=== PATIENT | male | born 1990 | race Caucasian/White ===

== ENCOUNTER 2018-02-25 01:50 | Observation (INO) ==
[2018-02-25] MEDS ORDERED: Naloxone 0.4 MG/ML INJ IVP PRN ×2 (04:04→18:20)
[2018-02-25] MEDS ORDERED: Acetaminophen 325 MG TABLET PO PRN ×2 (04:04→18:20)
[2018-02-25] MEDS ORDERED: Ondansetron 4 MG/2 ML VIAL IVP PRN ×2 (04:07→18:20)
[2018-02-25] MEDS ORDERED: *HR* FentaNYL (PF) 100 MCG/2 ML VIAL IVP PRN ×4 (04:07→18:20)
[2018-02-25] MEDS ORDERED: Ringers Solution, Lactated 1,000 ML IVC SCH ×2 (04:15→18:20)
--- NOTE | 2018-02-25 04:16 | Internal Med History&Physical ---
Date of Encounter: 02/25/18 Time of Encounter: 04:09 Internal Medicine - H&P: HPI Chief complaint: Abdominal pain Admitted From: Emergency Dept Plans for Post Hospital Care: Home History of present illness: Mr. Luna is a 28 year old male with no significant past medical history, who was sent from [facility] for evaluation of abdominal pain. Patient reports sudden onset of epigastric and right upper abdominal pain that started yesterday. Pain has been fairly constant, pressure-like, 10/10 in intensity, radiating to back, aggravated by greasy foods, not relieved with Tylenol. Not associated with nausea, vomiting, diarrhea, chest benita or dyspnea, fever/chills. He has no h/o- gallstones or GB surgery. Past Med Surg Social Fam HX - Past Medical History Source: patient Medical history: no medical history Psychiatric history: no psych history - Past Surgical History Surgical History: appendectomy, herniorrhaphy - Social History Smoking Status: Current every day smoker Packs per day: 1/2 Smokeless Tobacco Status: No Alcohol use: none Drug use: none Occupational status: unemployed Current living situation: Home, With Family Activity Level: Independent ambulation Recent Out of Country Travel Within the Last 8 Weeks: No Exposure or Possible Exposure to Illness During Travel: No - Family History Mother Living Status: Still Living Hx Family Cardiac Disorders: Yes Hx Family Endocrine Disorder: Yes (DM) Father Living Status: Still Living Internal Medicine - H&P: Meds No Known Home Drugs 02/25/18 [History] 3 Allergy/AdvReac Type Severity Reaction Status Date / Time No Known Allergies Allergy Verified 06/14/17 07:31 All Systems PM: A 10-system review of systems was performed and is negative for pertinent findings except as documented above in the HPI. - Constitutional Constitutional: no chills, no fever(s), no night sweats - EENT Eyes: no change in vision, no discharge, no pain, no photophobia Ears: no ear discharge, no ear pain, no tinnitus Nose, mouth and throat: no dysphagia, no nasal discharge, no neck pain, no sore throat - Cardiovascular Cardiovascular ROS IM: no chest pain, no diaphoresis, no dyspnea, no lightheadedness, no palpitations, no syncope - Respiratory Respiratory: no cough, no dyspnea, no wheezing, no excessive phlegm production - Gastrointestinal Gastrointestinal: abdominal pain - Musculoskeletal Musculoskeletal ROS IM: no numbness, no tingling - Integumentary Integumentary IM: no rash, no unusual bruising - Neurological Neurological ROS: no confusion, no convulsions, no focal weakness, no numbness, no tingling, no tremor(s) - Hematologic/Lymphatic Hematologic/Lymphatic: no easy bruising - Constitutional Vitals: Temp Pulse Resp BP Pulse Ox 98.1 F 65 14 130/74 100 02/25/18 03:50 02/25/18 03:50 02/25/18 03:50 02/25/18 03:50 02/25/18 03:50 General appearance: Present: A&O X 3, answers questions appropriately - Respiratory Respiratory exam: Present: CTAB. Absent: accessory muscle use, rales, rhonchi, wheezes - Cardiovascular Cardiovascular exam: Present: RRR, +S1, +S2. Absent: diastolic murmur, gallop, rubs, systolic murmur - GI/Abdominal GI/Abdominal exam: Present: normal bowel sounds, soft (tenderness to light palpation in epigastrium and RUQ), no peritoneal signs. Absent: distended, tenderness - Extremities Exam Extremities exam: Present: full ROM, warm, radial pulses palpable and symmetrical. Absent: calf tenderness, cyanotic, pedal edema - Neurological Exam Neurological exam: Present: CN II-XII intact, oriented X3, no focal deficits. Absent: pronater drift, facial droop, speech deficit - Skin Skin exam: Present: dry, intact - Assessment and plan (1) Abdominal pain Current Visit: Yes Status: Acute Assessment and plan: Suspected biliary colic vs cholecystitis. CT abdomen/pelvis in the ER showed possible acute cholecystitis with no e/o- gallstones. Will keep NPO, continue IV hydration, supportive care with pain control with PRN IV Morphine, and PRN antiemetics; Will get RUQ U/S; consult Surgery after the ultrasound results; Qualifiers: Abdominal location: epigastric Qualified Code(s): R10.13 - Epigastric pain (2) Tobacco abuse Current Visit: Yes Status: Chronic Assessment and plan: declines Nicotine transdermal patch. - Time Spent With Patient Total time spent is greater than 50% in coordination of care (as documented) at patient's floor/unit and/or counseling patient:
[2018-02-25] MEDS ORDERED: *HR* OxyCODONE Immed Rel 5 MG TABLET PO PRN ×3 (10:17→16:17)
--- NOTE | 2018-02-25 10:19 | Event Note ---
<Ann Villareal - Last Filed: 02/25/18 13:33> Date of Encounter: 02/25/18 Time of Encounter: 10:10 28yo male with no past medical history is a transfer from [facility] due to abdominal CT concerning for possible cholecystitis. Upon my examination he is alert and oriented times 3. He reports that his abdominal pain is worsening. The pain medicine helps temporarily. He denies nausea, vomiting, fever, chills. Gen.: Vitals noted. No acute distress. AAOx3 HEENT: oropharynx clear, Normocephalic, atraumatic Cardiac: RRR, no murmur, +S1/S2 Pulmonary: CTA bilaterally, no wheezes, rales or rhonchi, equal chest expansion Abdomen: soft, right upper quadrant tender, Bowel sounds noted, no guarding, Cartwright sign present with palpation Back: nontender, no CVA tenderness MSK: ROM intact, no joint swelling noted Extremities: no BLE edema, nontender calf, no cyanosis or clubbing Neuro: A&Ox3, moves all extremities, no focal deficits Psych: Appropriate mood and behavior Abdominal pain Possible cholecystitis demonstrated by abdominal CT and ultrasound. Ultrasound demonstrate cholelithiasis with mild wall thickening empirically cystic fluid. Patient reported that he woke up yesterday morning with the abdominal pain that was pressure like. He stated it was worse with greasy food which for him was pizza. The pain intensified and he went to ED. He still has his gallbladder. afebrile, WBC 10.5 (11.9) plan -Dr. wolf of surgery consulted and will evaluate the patient. He is to take patient back for cholecystectomy today. -NPO -fentanyl and immediate release oxycodone PRN pain -Zofran PRN nausea -IVF Tobacco abuse He is a current smoker 1ppd counseled him on smoking cessation <Fabiano Ledbetter - Last Filed: 02/25/18 15:11> Date of Encounter: 02/25/18 Pt admitted earlier today with abdominal pain consistent with cholecystitis. He continues to have pain. Exam Alert No distress Mucus membranes dry Heart reg No wheeze Abd soft with RUQ discomfort I/P 1. Probable acute cholecystitis Plan for OR today.
[2018-02-25 10:48] LABS: Basophils % 0.4 %; Eosinophils # 0.4 K/mcL (0.0-0.6); Eosinophils % 3.4 %; Hematocrit 40.6 % (37.5-50.1); Hemoglobin 13.6 g/dL (12.9-16.9); Immature Granulocytes % 0.4 % (0-4); Lymphocytes # 1.5 K/mcL (0.6-4.6); Lymphocytes % 14.1 %; Mean Corpuscular HGB Conc 33.5 g/dL (31.6-35.5); Mean Corpuscular Hemoglobin 31.5 pg (28.0-33.3); Mean Platelet Volume 10.4 fL (9.4-12.4); Monocytes # 1.1 K/mcL (0.0-1.3); Neutrophils # 7.5 K/mcL (1.6-8.9); Platelet Count 231 K/mcL (140-400); Red Blood Count 4.32 M/mcL (4.19-5.50); Red Cell Distribution Width 12.3 % (11.5-14.5); Segmented Neutrophils % 71.7 %
[2018-02-25 10:57] LABS: Alanine Aminotransferase 19 Units/L (7-52); Albumin 3.9 g/dL (3.5-5.7); Albumin/Globulin Ratio 1.4 (1.1-2.2); Alkaline Phosphatase 70 Units/L (34-104); Aspartate Amino Transferase 17 Units/L (13-39); BUN/Creatinine Ratio 11 (6-26); Bilirubin,Total 0.4 mg/dL (0.3-1.0); Blood Urea Nitrogen 7 mg/dL (6-20); Calcium 8.7 mg/dL (8.6-10.3); Carbon Dioxide 26 mEq/L (23-29); Chloride 107 mEq/L (98-107); Globulin 2.7 g/dL (2.4-3.5); Glucose 109 mg/dL (70-105); Osmolality,Calculated 283 (280-300); Potassium 3.8 mEq/L (3.5-5.1); Sodium 137 mEq/L (136-145); Total Protein 6.6 g/dL (6.4-8.9); eGFR For African Americans > 60 (> 60); eGFR For Non-African Americans > 60 (> 60)
--- NOTE | 2018-02-25 13:02 | General Surgery Consult Note ---
Date of Encounter: 02/25/18 Time of Encounter: 12:35 History of Present Illness Consult date: 02/25/18 Requesting physician: Ann Villareal History of present illness: 28-year-old male referred to surgical services further evaluation of right upper quadrant abdominal pain. The patient was transferred from [facility] after presenting to the emergency department with approximately a 24-hour history of right upper quadrant abdominal pain. The pain was epigastric and right upper quadrant with radiation through to the back but not associated with nausea, vomiting, diarrhea. There was no fevers chills or reported dysphagia. CT of the abdomen and pelvis was notable for dilated gallbladder with mild wall thickening and pericholecystic fluid. No obvious stones were identified. The patient was transferred to [facility] for further evaluation and treatment. An ultrasound of the gallbladder completed this morning showed cholelithiasis with mild wall thickening and pericholecystic fluid. Sonographic Cartwright sign was described as negative. These findings prompted the surgical referral. Past medical history: None; no history of hypertension, diabetes, cardiac, pulmonary or renal disease. Surgical history: Open appendectomy in 2002 for acute appendicitis Allergies: No known drug allergies Medications: The patient does not use any routine home meds Social history: Patient is , lives with his spouse; patient admits to tobacco use, 1 pack per day for the last 12 years; he denies any alcohol or illicit drug use. Family history mother has had gallbladder disease Physical examination: Thin age-appropriate male lying quietly in his hospital bed. The patient is afebrile, currently 98.5, pulse 79, respirations 16, blood pressure 124/72. SPO2 on room air 98%. Skin is warm, there is no obvious jaundice. Multiple cutaneous tattoos are evident. Lungs: Clear to auscultation, the patient admits to right upper quadrant abdominal pain on deep inspiration Cardiac: Regular rate, no appreciable murmurs Abdomen: Soft, nondistended with tenderness in the right upper quadrant. There is involuntary guarding in the right upper quadrant. Bowel sounds were hypoactive. There is a low midline surgical scar extending from the umbilicus to the pubis without fascial defects. I did not detect any rebound or peritoneal signs: Weight from the right upper quadrant. Extremities: No obvious clubbing, cyanosis, edema. Rounded inflammatory mass on the dorsum of the right hand consistent with a cutaneous abscess. Labs: White count on presentation to [facility] 11.9, hemoglobin 15.0, hematocrit 45.1; platelet count 275,000; differential within normal limits Electrolytes, BUN, creatinine within normal limits LFTs were normal. Repeat labs this morning at [facility]; white count 10.5, hemoglobin 13.6 hematocrit 40.6 - likely reflective of fluid resuscitation administered before and during his transfer to [facility]. Electrolytes, BUN/creatinine have remained stable/within normal limits CT abdomen and pelvis and sonogram were reviewed with [facility]. The findings are available in the respective reports. Impression: 28-year-old male with onset of acute right upper quadrant abdominal pain. Findings consistent with acute calculus cholecystitis. The patient was in pain during my examination prompting my recommendation to proceed with surgery. The patient is a reasonable candidate for laparoscopic cholecystectomy but understands that an open cholecystectomy may become necessary. Risks of surgery include hemorrhage, infection, intra-abdominal abscess, bile leak, injury to adjacent ducts, vessels, organs, or bowel. Postcholecystectomy diarrhea is also possible. That risk for respiratory complications such as pneumonia or respiratory failure as well as cardiac risks such as dysrhythmia. The patient and is attended family have expressed understanding, I attempted to answer all her questions. Surgical consent has been obtained. Plan: Laparoscopic cholecystectomy, possible open cholecystectomy with possible cholangiogram later today. Pain medications will be provided while we are awaiting availability of the OR. Notrhing to eat or drink except for medications. Past Med Surg Social Fam HX - Past Medical History Medical history: no medical history Psychiatric history: no psych history - Past Surgical History Surgical History: appendectomy, herniorrhaphy - Social History Smoking Status: Current every day smoker Packs per day: 1/2 Smokeless Tobacco Status: No Alcohol use: none Drug use: none - Family History Mother Living Status: Still Living Hx Family Cardiac Disorders: Yes Hx Family Endocrine Disorder: Yes (DM) Father Living Status: Still Living Medications and Allergies No Known Home Drugs 02/25/18 [History] 3 Allergy/AdvReac Type Severity Reaction Status Date / Time No Known Allergies Allergy Verified 02/25/18 09:22 Review of Systems All systems PM: The remainder of the systems were reviewed and are negative General Surgery Exam Initial Vital Signs Temp Pulse Resp BP Pulse Ox 98.1 F 65 14 130/74 100 02/25/18 03:50 02/25/18 03:50 02/25/18 03:50 02/25/18 03:50 02/25/18 03:50 Exam Initial Vital Signs Temp Pulse Resp BP Pulse Ox 98.1 F 65 14 130/74 100 02/25/18 03:50 02/25/18 03:50 02/25/18 03:50 02/25/18 03:50 02/25/18 03:50 Results - Labs 02/25/18 10:18 02/25/18 10:18 Abnormal lab results Creatinine 0.65 mg/dL (0.70-1.30) L 02/25/18 10:18 Glucose 109 mg/dL (70-105) H 02/25/18 10:18 Diabetes panel 02/25/18 Range/Units 10:18 Sodium 137 (136-145) mEq/L Potassium 3.8 (3.5-5.1) mEq/L Chloride 107 (98-107) mEq/L Carbon Dioxide 26 (23-29) mEq/L BUN 7 (6-20) mg/dL Creatinine 0.65 L (0.70-1.30) mg/dL Glucose 109 H (70-105) mg/dL Calcium 8.7 (8.6-10.3) mg/dL AST 17 (13-39) Units/L ALT 19 (7-52) Units/L Alkaline Phosphatase 70 (34-104) Units/L Albumin 3.9 (3.5-5.7) g/dL Calcium panel 02/25/18 Range/Units 10:18 Calcium 8.7 (8.6-10.3) mg/dL Albumin 3.9 (3.5-5.7) g/dL Pituitary panel 02/25/18 Range/Units 10:18 Sodium 137 (136-145) mEq/L Potassium 3.8 (3.5-5.1) mEq/L Chloride 107 (98-107) mEq/L Carbon Dioxide 26 (23-29) mEq/L BUN 7 (6-20) mg/dL Creatinine 0.65 L (0.70-1.30) mg/dL Glucose 109 H (70-105) mg/dL Calcium 8.7 (8.6-10.3) mg/dL Adrenal panel 02/25/18 Range/Units 10:18 Sodium 137 (136-145) mEq/L Potassium 3.8 (3.5-5.1) mEq/L Chloride 107 (98-107) mEq/L Carbon Dioxide 26 (23-29) mEq/L BUN 7 (6-20) mg/dL Creatinine 0.65 L (0.70-1.30) mg/dL Glucose 109 H (70-105) mg/dL Calcium 8.7 (8.6-10.3) mg/dL Total Bilirubin 0.4 (0.3-1.0) mg/dL AST 17 (13-39) Units/L ALT 19 (7-52) Units/L Alkaline Phosphatase 70 (34-104) Units/L Albumin 3.9 (3.5-5.7) g/dL All other labs normal. Consult Discharge Plan - Plan Referrals: Nubia Elizabeth, ROX [Primary Care Provider] -
--- NOTE | 2018-02-25 15:18 | Anesthesia Evaluation PreOp ---
Date of Encounter: 02/25/18 Time of Encounter: 15:15 - Past History Planned Operation: Laparoscopic Cholecystectomy Cardiac History: Denies any Significant Hx Pulmonary History: Smoker (12 years) RAILROAD PASSENGER AGENT History: Denies Any Significant HX Other Medical History: Denies Any Significant HX Anesthesia History: No Prior Anesthetic Complications, Past Anesthesia Alcohol Use: none Drug use: none Medications and Allergies No Known Home Drugs 02/25/18 [History] 3 Allergy/AdvReac Type Severity Reaction Status Date / Time No Known Allergies Allergy Verified 02/25/18 09:22 - Meds/Allergy Pre-op Review Medications Reviewed: Yes Allergies Reviewed: Yes Beta Blockers on Current Med List: No Anesthesia Results - Labs 02/25/18 10:18 02/25/18 10:18 Anesthesia Exam Vital Signs/O2 Sat, Most Current Temp Pulse Resp BP Pulse Ox 99.2 F 92 16 133/78 98 02/25/18 14:44 02/25/18 14:44 02/25/18 14:44 02/25/18 14:44 02/25/18 14:44 Height: 6'2''/1.88m Weight: 155 lbs/70 kg NPO (# of Hours): 8 Pain Scale: 0 Pain Scale Used: Numeric (1 - 10) - HEENT Pupil (Motor): EOMI Mallampati: II Teeth: Normal Oral Opening: Greater than 3 - RAILROAD PASSENGER AGENT LOC: Oriented RAILROAD PASSENGER AGENT Motor: Normal RUE, Normal LUE, Normal RLE, Normal LLE, Normal Face RAILROAD PASSENGER AGENT Sensory: Normal: RUE, LUE, RLE, LLE, Face - Cardiac Rhythm: Regular Murmur: None - Pulmonary Breath Sounds: bilateral Clear Respiratory Effort: Symmetrical Anesthesia Assess/Plan ASA Score: 2 Modified Mac Scale for Level of Consciousness: Cooperative, oriented, and tranquil Anesthetic Plan: General Monitoring Plan: Standard Monitors Recovery Plan: PACU
[2018-02-25] MEDS ORDERED: *HR* Midazolam HCl 2 MG/2 ML VIAL ONE (15:45)
[2018-02-25] MEDS ORDERED: *HR* Propofol 200 MG/20 ML VIAL IVP ONE (15:45)
[2018-02-25] MEDS ORDERED: *HR* FentaNYL (PF) 100 MCG/2 ML VIAL ONE ×3 (15:45→16:38)
[2018-02-25] MEDS ORDERED: *HR* EPINEPHrine 30 MG/30 ML MDV ONE (15:47)
[2018-02-25] MEDS ORDERED: Isovue-300 50 ML VIAL IVP ONE (15:47)
[2018-02-25] MEDS ORDERED: Dexamethasone 4 MG/ML VIAL ONE (15:49)
[2018-02-25] MEDS ORDERED: Lidocaine -MPF 2% 2 ML VIAL ONE (15:49)
[2018-02-25] MEDS ORDERED: *HR* Succinylcholine 200 MG/10 ML VIAL IVP ONE (15:49)
[2018-02-25] MEDS ORDERED: *HR* Rocuronium Bromide 50 MG/5 ML VIAL ONE (15:49)
[2018-02-25] MEDS ORDERED: Ondansetron 4 MG/2 ML VIAL ONE (15:49)
[2018-02-25] MEDS ORDERED: Lidocaine -MPF 4% 5 ML AMPUL ONE (15:49)
[2018-02-25] MEDS ORDERED: CeFAZolin Syringe 2,000MG/20 ML SYR IVPB ONE (16:17)
[2018-02-25] MEDS ORDERED: Neostigmine Methylsulfate 3 MG/3 ML SYRINGE ONE (16:42)
[2018-02-25] MEDS ORDERED: Ringers Solution, Lactated 500 ML IVC ONE ×2 (17:30→17:45)
--- NOTE | 2018-02-25 17:39 | Operative Note ---
Date of procedure: 02/25/18 Pre-op diagnosis: Acute calculus cholecystitis Post-op diagnosis: other (Acute calculous cholecystitis with hydrops) Procedure: Laparoscopic cholecystectomy Complications: None apparent Anesthesia: GETA Local Anesthetics: 0.25% Sensorcaine HCL with Epinephrine 1:200,000 SubQ (cc) Surgeon: Dinesh Conti Was there an carpenter assistant installer present: No Estimated blood loss (cc): 5 IV fluids (cc): 1,200 Specimen: gallbladder Condition: stable Disposition: PACU Procedure in Detail: The patient was brought to the operating room and placed supine on the procedure table. The patient was appropriately identified as to person and procedure. The accuracy of this information was confirmed by the patient and the procedure team. The patient was then intubated and anesthetized [facility]. The abdomen was prepped and draped in usual sterile fashion. Due a prior history of open appendectomy via a low midline incision I initiated the laparoscopic approach in the right upper quadrant, subcostal abdomen, in the midclavicular line. Several milliliters of 0.25% bupivacaine with 1 200, 000 units epinephrine was infiltrated into this area. A small transverse incision was made .The abdominal wall was grasped and elevated. A 5 mm Xcel port was established. The rigid laparoscope was placed within the obturator to visualize passage through the layers of the anterior abdominal wall. When the abdominal cavity was accessed, the obturator was replaced by the rigid laparoscope and the abdomen was insufflated with gaseous carbon dioxide. There was no obvious visible injury from establishing the port. As suspected, multiple adhesions existed in the caudal abdomen/pelvis. Under direct visualization a supraumbilical port was established. The rigid laparoscope was shifted to this location to visualize placement of the remaining ports. Each site was infiltrated with the bupivacaine with epinephrine solution. The gallbladder was acutely inflamed and tensely distended. Approximately 30 mL of a clear mucoid fluid was evacuated. This was consistent with hydrops of the gallbladder, consistent with acute obstruction of the cystic duct. The gallbladder wall was tracely thickened. Once the gallbladder was decompressed it was grasped and retracted. The hepatoduodenal ligament was dissected. The cystic duct was skeletonized and clipped near the infundibulum of the gallbladder. A Taut cholangiogram catheter was introduced via a separate percutaneous insertion site. The cystic duct was incised, but this resulted in pulsatile bleeding. The artery was immediately adjacent to the cystic duct. Both the cystic duct and cystic artery were clipped and divided. My efforts to obtain an intraoperative cholangiogram were abandoned. The gallbladder was then dissected from the liver bed using the Ethicon harmonic dev. Once from liver bed, the gallbladder was placed in an endoscopic pouch and extracted through the supraumbilical opening. The gallbladder was filled with many small stones. The specimen was recovered and sent to pathology. The liver bed was inspected for adequate hemostasis before the pneumoperitoneum was evacuated and the endoscopic instrumentation removed. The fascia of both the supraumbilical and subxiphoid ports were closed with interrupted figure-of- eight 0 Vicryl using S retractors. The skin edges of the port sites were approximated with subcuticular 4-0 Vicryl. The incisions were sealed with Dermabond dermal adhesive. The patient was taken to recovery in stable condition. Needle, sponge, and instrument counts were correct at the close of the case. Total volume of 0.25% bupivacaine with 1-200,000 units epinephrine, 20 mL.
--- NOTE | 2018-02-25 17:54 | Anesthesia Evaluation Post Op ---
Date of Encounter: 02/25/18 Time of Encounter: 17:53 - Vital Signs Vital Signs: Vital Signs/O2 Sat, Most Current Temp Pulse Resp BP Pulse Ox 98.8 F 76 16 146/80 99 02/25/18 17:21 02/25/18 17:41 02/25/18 17:41 02/25/18 17:41 02/25/18 17:41 - Lungs Lungs: Clear Ascult./Percussion - Airway Airway: Non-obstructed - Cardiovascular Regular Rate - Mental Status Mental Status: Asleep with brisk response to light stimulation - Pain Pain Scale: 4 Pain Scale used: Numeric (1 - 10) - Nausea Vomiting Nausea Vomiting: Responds to treatment with IV Meds - Hydration Hydration: NPO, Has not voided - Discharge PostOp Status: Transfer Patient to floor
[2018-02-25] MEDS: *HR* OxyCODONE Immed Rel 5 MG TABLET PO PRN ×2 (18:32→23:54)
[2018-02-26] MEDS: *HR* OxyCODONE Immed Rel 5 MG TABLET PO PRN ×3 (04:18→13:22)
[2018-02-26 04:53] LABS: Basophils % 0.1 %; Hematocrit 42.6 % (37.5-50.1); Hemoglobin 14.4 g/dL (12.9-16.9); Immature Granulocytes % 0.6 % (0-4); Lymphocytes # 0.9 K/mcL (0.6-4.6); Lymphocytes % 5.6 %; Mean Corpuscular HGB Conc 33.8 g/dL (31.6-35.5); Mean Corpuscular Hemoglobin 31.6 pg (28.0-33.3); Mean Corpuscular Volume 93.4 fL (83.0-100.0); Mean Platelet Volume 10.8 fL (9.4-12.4); Monocytes # 0.8 K/mcL (0.0-1.3); Neutrophils # 14.1 K/mcL (1.6-8.9); Platelet Count 268 K/mcL (140-400); Red Blood Count 4.56 M/mcL (4.19-5.50); Red Cell Distribution Width 12.1 % (11.5-14.5); Segmented Neutrophils % 88.7 %
--- NOTE | 2018-02-26 09:18 | Internal Med Progress Note ---
<Ann Villareal - Last Filed: 02/26/18 13:39> Date of Encounter: 02/26/18 Time of Encounter: 09:15 - Assessment and plan (1) Tobacco abuse Current Visit: Yes Status: Chronic Assessment and plan: declines Nicotine transdermal patch. (2) Acute cholecystitis Current Visit: Yes Status: Acute Assessment and plan: POD#1: laparoscopic cholecystectomy. cholangiogram was not done. Cholecystitis demonstrated by abdominal CT and ultrasound. Ultrasound demonstrate cholelithiasis with mild wall thickening empirically cystic fluid. Patient reported that he woke up yesterday morning with the abdominal pain that was pressure like. He stated it was worse with greasy food which for him was pizza. The pain intensified and he went to ED. He still has his gallbladder. afebrile, WBC 15.9 (11.9) Patient reports increased abdominal pain as compared to yesterday along with right should pain that is likely referred pain from gas in abdomen. Abdominal exam: soft, diffuse tender, guarding, bowel sounds present plan -Dr. conti of surgery consulted. Took patient to OR for cholecystectomy yesterday. -Order CMP to evaluate bili since increased pain -regular diet -encouraged ambulation -fentanyl and immediate release oxycodone PRN pain -Zofran PRN nausea -IVF 75 - Time Spent With Patient Total time spent is greater than 50% in coordination of care (as documented) at patient's floor/unit and/or counseling patient: - Subjective Interval history: 28yo male with no past medical history is a transfer from [facility] due to abdominal CT concerning for possible cholecystitis. Upon my examination he is alert and oriented times 3. He reports that his abdominal pain is worse than yesterday. He also has right shoulder pain that is likely refereed from the gas in abdomen during procedure. The pain medicine helps temporarily. He denies nausea, vomiting, fever, chills. - Constitutional Vitals: Temp Pulse Resp BP Pulse Ox 98.3 F 87 16 128/72 97 02/26/18 07:32 02/26/18 07:32 02/26/18 07:32 02/26/18 07:32 02/26/18 07:32 General appearance: Present: A&O X 3, answers questions appropriately Exam: Gen.: Vitals noted. No acute distress. AAOx3 HEENT: oropharynx clear, Normocephalic, atraumatic Cardiac: RRR, no murmur, +S1/S2 Pulmonary: CTA bilaterally, no wheezes, rales or rhonchi, equal chest expansion Abdomen: soft, diffuse abdominal pain, Bowel sounds noted, + guarding Back: nontender, no CVA tenderness MSK: ROM intact, no joint swelling noted Extremities: no BLE edema, nontender calf, no cyanosis or clubbing Neuro: A&Ox3, moves all extremities, no focal deficits Psych: Appropriate mood and behavior Internal Medicine: Result - Labs CBC & Chem 7: 02/26/18 04:09 02/25/18 10:18 Labs: Short CBC 02/25/18 02/26/18 Range/Units 10:18 04:09 WBC 10.5 15.9 H D (4.3-11.1) K/mcL Hgb 13.6 14.4 (12.9-16.9) g/dL Hct 40.6 42.6 (37.5-50.1) % Plt Count 231 268 (140-400) K/mcL Neutrophils # 7.5 14.1 H (1.6-8.9) K/mcL BMP 02/25/18 10:18 Sodium 137 Potassium 3.8 Chloride 107 Carbon Dioxide 26 BUN 7 Creatinine 0.65 L Glucose 109 H Calcium 8.7 Liver Function 02/25/18 Range/Units 10:18 Total Bilirubin 0.4 (0.3-1.0) mg/dL AST 17 (13-39) Units/L ALT 19 (7-52) Units/L Alkaline Phosphatase 70 (34-104) Units/L Albumin 3.9 (3.5-5.7) g/dL - Impressions Impressions Abdomen Ultrasound 02/25/18 09:00 IMPRESSION: Cholelithiasis with mild wall thickening and pericholecystic fluid but negative sonographic Cartwright's sign. Findings are equivocal for cholecystitis. The findings were sent to the [facility] at 9:29 am on 02/25/2018to be communicated to a licensed caregiver. RECOMMENDATIONS: Further evaluation with HIDA scan. D/ / Maggi Vera MD / Maggi Vera MD Interpreting Provider: Maggi Vera MD - VTE Documentation of Mechanical Device: Intermittent pneumatic compression device Consult Discharge Plan - Plan Additional Instructions: Follow-up with Dr. conti outpatient take pain medication as needed Referrals: Dinesh Conti MD [Non-Partnered Physician] - 03/04/18 2:50 pm Prescriptions: HYDROcodone/Acet 5/325 mg [[place] 5-325 mg] 1 tab PO Q4H PRN 2 Days #12 tab PRN Reason: Breakthrough Pain <Fabiano Ledbetter - Last Filed: 02/26/18 17:58> Date of Encounter: 02/26/18 - Assessment and plan (1) Tobacco abuse Current Visit: Yes Status: Chronic (2) Acute cholecystitis Current Visit: Yes Status: Acute - Time Spent With Patient Total time spent is greater than 50% in coordination of care (as documented) at patient's floor/unit and/or counseling patient: - Constitutional Vitals: Temp Pulse Resp BP Pulse Ox 97.9 F 68 16 130/74 97 02/26/18 11:51 02/26/18 11:51 02/26/18 11:51 02/26/18 11:51 02/26/18 11:51 Internal Medicine: Result - Labs CBC & Chem 7: 02/26/18 04:09 02/26/18 13:45 Labs: Short CBC 02/26/18 Range/Units 04:09 WBC 15.9 H D (4.3-11.1) K/mcL Hgb 14.4 (12.9-16.9) g/dL Hct 42.6 (37.5-50.1) % Plt Count 268 (140-400) K/mcL Neutrophils # 14.1 H (1.6-8.9) K/mcL BMP 02/26/18 13:45 Sodium 139 Potassium 3.7 Chloride 104 Carbon Dioxide 29 BUN 7 Creatinine 0.75 Glucose 136 H Calcium 9.5 Liver Function 02/26/18 Range/Units 13:45 Total Bilirubin 0.2 L (0.3-1.0) mg/dL Direct Bilirubin 0.0 (0.0-0.2) mg/dL AST 20 (13-39) Units/L ALT 27 (7-52) Units/L Alkaline Phosphatase 75 (34-104) Units/L Albumin 4.2 (3.5-5.7) g/dL - Attending Attestation I examined this patient and my medical decision-making was reviewed with the Resident Physician on 02/26/18. I agree with the documented findings, disposition and treatment plan as described except to the extent set forth below. Please see discharge summary of this date.
[2018-02-26 14:26] LABS: Alanine Aminotransferase 27 Units/L (7-52); Albumin 4.2 g/dL (3.5-5.7); Albumin/Globulin Ratio 1.4 (1.1-2.2); Alkaline Phosphatase 75 Units/L (34-104); Aspartate Amino Transferase 20 Units/L (13-39); BUN/Creatinine Ratio 9 (6-26); Bilirubin,Total 0.2 mg/dL (0.3-1.0); Blood Urea Nitrogen 7 mg/dL (6-20); Calcium 9.5 mg/dL (8.6-10.3); Carbon Dioxide 29 mEq/L (23-29); Chloride 104 mEq/L (98-107); Glucose 136 mg/dL (70-105); Osmolality,Calculated 288 (280-300); Potassium 3.7 mEq/L (3.5-5.1); Sodium 139 mEq/L (136-145); Total Protein 7.2 g/dL (6.4-8.9); eGFR For African Americans > 60 (> 60); eGFR For Non-African Americans > 60 (> 60)
--- NOTE | 2018-02-26 14:34 | Discharge Summary ---
<Ann Villareal - Last Filed: 02/26/18 14:30> Orders not resulted at time of discharge: Pending orders 02/25/18 17:00 Surgical Pathology [PTH] Routine Date of Encounter: 02/26/18 Time of Encounter: 14:30 - Discharge Diagnosis (1) Tobacco abuse Priority: Secondary Status: Chronic (2) Acute cholecystitis Priority: Primary Status: Acute Hospital course: Mr. Luna is a 28 year old male with no significant past medical history, who was sent from [facility] for evaluation of abdominal pain. Abdominal CT was concerning for possible cholecystitis. Patient reports sudden onset of epigastric and right upper abdominal pain that started yesterday. Pain has been fairly constant, pressure-like, 10/10 in intensity, radiating to back, aggravated by greasy foods, not relieved with Tylenol. Not associated with nausea, vomiting, diarrhea, chest benita or dyspnea, fever/chills. He has no h/o- gallstones or GB surgery. Upon his admission to [facility] he had an ultrasound that demonstrated cholelithiasis, moderate wall thickening and pericholecystic fluid. He was afebrile, WBC WNL, bilirubin and liver function tests within normal limits. General surgery was consulted due to concerns for acute cholecystitis. After evaluation general surgery decided to take patient to OR for cholecystectomy. Per surgeon report the gallbladder was acutely inflamed and distended consistent with acute cholecystitis. After surgery the patient had continued abdominal pain and right shoulder referred pain from gas in the abdomen. He was instructed to ambulate which would help with the pain. His pain was controlled with pain medication. He tolerated a regular diet well. Upon discharge she was alert and oriented times 3 with full capacity. He is to follow up with Dr. conti of general surgery outpatient. Discharge discussed with: patient, nurse Time spent discussing smoking cessation with patient: more than 10 minutes - Time Spent with Patient Total time spent providing and/or coordinating discharge services: Greater than 30 minutes - Discharge Medications Prescriptions: HYDROcodone/Acet 5/325 mg [[place] 5-325 mg] 1 tab PO Q4H PRN 2 Days #12 tab PRN Reason: Breakthrough Pain Home Medications: HYDROcodone/Acet 5/325 mg [[place] 5-325 mg] 1 tab PO Q4H PRN 2 Days #12 tab 02/26 [Rx] Allergies/Adverse Reactions: 3 Allergy/AdvReac Type Severity Reaction Status Date / Time No Known Allergies Allergy Verified 02/25/18 09:22 Date of admission: 02/25/18 03:19 Primary care physician: Nubia Elizabeth CNP Consults: 02/25/18 10:12 Consult to Surgery [CONS] Routine Consulting Provider: Surgery Florencio Conti Reason for Consult: Possible cholecystectomy Call Completed: Yes Discharging clinician: Fabiano Lebdetter Anticipated date of discharge: 02/26/18 - Constitutional Vitals: Temp Pulse Resp BP Pulse Ox 97.9 F 68 16 130/74 97 02/26/18 11:51 02/26/18 11:51 02/26/18 11:51 02/26/18 11:51 02/26/18 11:51 General appearance: Present: A&O X 3, answers questions appropriately Exam: Gen.: Vitals noted. No acute distress. AAOx3 HEENT: oropharynx clear, Normocephalic, atraumatic Cardiac: RRR, no murmur, +S1/S2 Pulmonary: CTA bilaterally, no wheezes, rales or rhonchi, equal chest expansion Abdomen: soft, diffuse abdominal pain, Bowel sounds noted, + guarding Back: nontender, no CVA tenderness MSK: ROM intact, no joint swelling noted Extremities: no BLE edema, nontender calf, no cyanosis or clubbing Neuro: A&Ox3, moves all extremities, no focal deficits Psych: Appropriate mood and behavior - Patient Status Disposition: Home, Self-Care Condition: Good Functional capacity at discharge: independent ambulation Overall status at discharge: patient is progressing back to baseline - Discharge Instructions Follow Up With: Dinesh Conti MD [Non-Partnered Physician] - 03/04/18 2:50 pm Additional Instructions: Follow-up with Dr. conti outpatient take pain medication as needed - Diet and Activity Activity: resume usual activities as tolerated Diet: advance to your usual diet - VTE Documentation of Mechanical Device: Intermittent pneumatic compression device <Fabiano Ledbetter - Last Filed: 02/26/18 18:24> Orders not resulted at time of discharge: Pending orders 02/25/18 17:00 Surgical Pathology [PTH] Routine Date of Encounter: 02/26/18 - Discharge Diagnosis (1) Acute cholecystitis Status: Acute (2) Tobacco abuse Status: Chronic Hospital course: Mr. Luna is a 28 year old male - Time Spent with Patient Total time spent providing and/or coordinating discharge services: 36min Date of admission: 02/25/18 03:19 Primary care physician: Nubia Elizabeth CNP Consults: 02/25/18 10:12 Consult to Surgery [CONS] Routine Consulting Provider: Surgery Florencio Surg - Sinjacob Reason for Consult: Possible cholecystectomy Call Completed: Yes - Constitutional Vitals: Temp Pulse Resp BP Pulse Ox 97.9 F 68 16 130/74 97 02/26/18 11:51 02/26/18 11:51 02/26/18 11:51 02/26/18 11:51 02/26/18 11:51 - Attending Attestation I examined this patient and my medical decision-making was reviewed with the Resident Physician on 02/26/18. I agree with the documented findings, disposition and treatment plan as described except to the extent set forth below. Mr Luna has been in observation for abdominal pain. He was found to have cholecystitis and underwent lap freddie. He is now afebrile and ready for discharge home. Exam Alert Mod distress due to pain. Mucus membranes dry Heart not tachy No wheeze abd soft Plan D/C home today
[2018-02-26] MEDS ORDERED: *HR* OxyCODONE Immed Rel 5 MG TABLET PO PRN (14:47)
[2018-02-26] MEDS: *HR* HYDROcodone/Acet 5/325 mg TABLET PO PRN ×2 (17:14→21:16)
[2018-02-26] MEDS ORDERED: Ringers Solution, Lactated 1,000 ML IVC SCH (19:26)
--- NOTE | 2018-02-26 19:35 | General Surgery Progress Note ---
Date of Encounter: 02/26/18 Time of Encounter: 19:27 Subjective Patient reports: still having pain Narrative: General Surgery - POD #1 - this is a delayed note. The patient was seen approx 11:30 this AM Patient complaining of significantly greater pain than preop. Because of the pain, the patient refused to ambulate, deep breathe, cough, or follow any of the postoperative instructions provided by physicians and nursing. Despite his complaints, no nausea, vomiting; tolerating regular diet The patient has remained afebrile and hemodynamically stable. Pulse 61 to 65 ; blood pressure 121/64 to 127/76. Respiratory rate 16-18. To my examination- Lungs were clear bilaterally; no obvious abdominal pain with deep inspiration Cardiac: Regular rate, no appreciable murmur Abdomen: Tender in the right upper quadrant; no discernible intra -abdominal masses. No rebound. Active bowel sounds. Port sites intact, clean and dry. Laboratories: White count 15.9 with neutrophilia 14.1%- likely response to surgery. Hemoglobin 14.4, hematocrit 42.6, platelet count 268,000. Electrolytes, BUN, creatinine all within normal limits Total bilirubin 0.2, AST 20, ALT 27 alkaline phosphatase 75. Impression: Postoperative day 1; status post laparoscopic cholecystectomy for acute calculus cholecystitis with hydrops. Patient complaining of severe postoperative pain. No nausea, vomiting, or significant findings on physical examination. Laboratories reviewed and appear to be within the expected range. The patient was strongly encouraged to increase his activity out of bed as this would facilitate his discharge home. His was present during this examination and discussion. During the course of the day, the patient's status has not changed nor has his cooperation with efforts to increase his activity out of bed. Plan: Continue to monitor; continue efforts to mobilize the patient/ambulate and incentive spirometry Repeat labs in a.m. Wean pain meds as patient continues to recover. Objective Vital Signs - Last 8 Hours Temp Pulse Resp BP Pulse Ox 02/26/18 11:51 97.9 F 68 16 130/74 97 Intake and Output 02/26/18 02/26/18 02/26/18 07:59 15:59 23:59 Intake Total 120 / 120 480 / 480 Output Total 1300 / 1300 600 / 600 Balance -1180 / -1180 -120 / -120 Intake: Oral 120 / 120 480 / 480 Output: Urine 1300 / 1300 600 / 600 Other: Meal Lunch Percent of Meal Consumed 0% # Bowel Movements 0 - Labs 02/26/18 04:09 02/26/18 13:45 Diabetes panel 02/26/18 Range/Units 13:45 Sodium 139 (136-145) mEq/L Potassium 3.7 (3.5-5.1) mEq/L Chloride 104 (98-107) mEq/L Carbon Dioxide 29 (23-29) mEq/L BUN 7 (6-20) mg/dL Creatinine 0.75 (0.70-1.30) mg/dL Glucose 136 H (70-105) mg/dL Calcium 9.5 (8.6-10.3) mg/dL AST 20 (13-39) Units/L ALT 27 (7-52) Units/L Alkaline Phosphatase 75 (34-104) Units/L Albumin 4.2 (3.5-5.7) g/dL Calcium panel 02/26/18 Range/Units 13:45 Calcium 9.5 (8.6-10.3) mg/dL Albumin 4.2 (3.5-5.7) g/dL Pituitary panel 02/26/18 Range/Units 13:45 Sodium 139 (136-145) mEq/L Potassium 3.7 (3.5-5.1) mEq/L Chloride 104 (98-107) mEq/L Carbon Dioxide 29 (23-29) mEq/L BUN 7 (6-20) mg/dL Creatinine 0.75 (0.70-1.30) mg/dL Glucose 136 H (70-105) mg/dL Calcium 9.5 (8.6-10.3) mg/dL Adrenal panel 02/26/18 Range/Units 13:45 Sodium 139 (136-145) mEq/L Potassium 3.7 (3.5-5.1) mEq/L Chloride 104 (98-107) mEq/L Carbon Dioxide 29 (23-29) mEq/L BUN 7 (6-20) mg/dL Creatinine 0.75 (0.70-1.30) mg/dL Glucose 136 H (70-105) mg/dL Calcium 9.5 (8.6-10.3) mg/dL Total Bilirubin 0.2 L (0.3-1.0) mg/dL AST 20 (13-39) Units/L ALT 27 (7-52) Units/L Alkaline Phosphatase 75 (34-104) Units/L Albumin 4.2 (3.5-5.7) g/dL - VTE Documentation of Mechanical Device: Intermittent pneumatic compression device Consult Discharge Plan - Plan Additional Instructions: Follow-up with Dr. wolf outpatient take pain medication as needed Referrals: Dinesh Wolf MD [Non-Partnered Physician] - 03/04/18 2:50 pm Prescriptions: HYDROcodone/Acet 5/325 mg [[place] 5-325 mg] 1 tab PO Q4H PRN 2 Days #12 tab PRN Reason: Breakthrough Pain
[2018-02-27] MEDS: *HR* HYDROcodone/Acet 5/325 mg TABLET PO PRN ×3 (01:32→16:30)
--- NOTE | 2018-02-27 10:39 | Internal Med Progress Note ---
Date of Encounter: 02/27/18 Time of Encounter: 10:39 - Assessment and plan (1) Acute cholecystitis Current Visit: Yes Status: Resolved Assessment and plan: POD#2: laparoscopic cholecystectomy. cholangiogram was not done. Plan for discharge home today. Instructions and prescriptions completed. Pt encouraged to ambulate and minimize pain medications. (2) Tobacco abuse Current Visit: Yes Status: Chronic Assessment and plan: Cessation counselling. - Time Spent With Patient Total time spent is greater than 50% in coordination of care (as documented) at patient's floor/unit and/or counseling patient: - Subjective Interval history: Mr. Luna is currently in observation following lap freddie for cholecystitis. He remains moderate to high risk. Mr Luna is beginning to feel better. He has not been moving much despite much encouragement. No fever. Appetite and PO intake OK as well. To go home today. - Constitutional Vitals: Temp Pulse Resp BP Pulse Ox 98.2 F 73 14 138/86 98 02/27/18 04:18 02/27/18 04:18 02/27/18 04:18 02/27/18 04:18 02/27/18 04:18 General appearance: Present: A&O X 3, answers questions appropriately - Head Head exam: Present: normocephalic - Eye Eye exam: Present: conjuntiva pink - ENT ENT exam: Present: mucous membranes moist - Respiratory Respiratory exam: Present: CTAB. Absent: rales, rhonchi, wheezes - Cardiovascular Cardiovascular exam: Present: RRR. Absent: tachycardia - GI/Abdominal GI/Abdominal exam: Present: normal bowel sounds, soft - Extremities Exam Extremities exam: Present: warm. Absent: tenderness - Neurological Exam Neurological exam: Present: alert, oriented X3, no focal deficits - Skin Skin exam: Present: dry, warm Internal Medicine: Result - Labs CBC & Chem 7: 02/26/18 04:09 02/26/18 13:45 Labs: BMP 02/26/18 13:45 Sodium 139 Potassium 3.7 Chloride 104 Carbon Dioxide 29 BUN 7 Creatinine 0.75 Glucose 136 H Calcium 9.5 Liver Function 02/26/18 Range/Units 13:45 Total Bilirubin 0.2 L (0.3-1.0) mg/dL Direct Bilirubin 0.0 (0.0-0.2) mg/dL AST 20 (13-39) Units/L ALT 27 (7-52) Units/L Alkaline Phosphatase 75 (34-104) Units/L Albumin 4.2 (3.5-5.7) g/dL - VTE Documentation of Mechanical Device: Intermittent pneumatic compression device Consult Discharge Plan - Plan Instructions: Laparoscopic Cholecystectomy (DC) Additional Instructions: Follow-up with Dr. wolf outpatient take pain medication as needed Referrals: Dinesh Wolf MD [Non-Partnered Physician] - 03/04/18 2:50 pm Prescriptions: HYDROcodone/Acet 5/325 mg [[place] 5-325 mg] 1 tab PO Q4H PRN 2 Days #12 tab PRN Reason: Breakthrough Pain
--- NOTE | 2018-02-27 11:36 | General Surgery Progress Note ---
Date of Encounter: 02/27/18 Time of Encounter: 11:28 Subjective Patient reports: feels better Narrative: General Surgery - POD #2 Patient feeling better; pain has subsided. Patient dressed, and ready to be discharged home. He has refused the lab draw ordered for this morning The patient remains afebrile, most recently 98.2, pulse 73, respirations 14, blood pressure stable at 138/86. SPO2 on room 98% Patient continues to tolerate regular diet; no nausea vomiting Lungs: Clear, no obvious pain and deep inspiration Cardiac: Regular rate, no appreciable murmurs Abdomen: Soft significantly diminished tenderness in the right upper quadrant. No obvious intra-abdominal masses. No rebound or peritoneal signs. Port sites intact, clean, dry, and healing well. Impression: Acute calculous cholecystitis with hydrops; postoperative day 2 Significantly improved/diminished abdominal pain. The patient is hemodynamically stable with no significant findings on physical examination AM blood draw refused - refused again after I expressed my concern about potential postoperative complication due to the patient's initial complaints of pain. Recommendations: May discharge home if deemed medically stable Outpatient follow-up in my office, 03/05/18. Patient may call office Thursday a.m. to make this appointment. Regular diet Activity as tolerated; lifting limited to less than 20 pounds Patient may shower, wash incisions with soap and water. Tylenol, Motrin, Advil, Aleve as needed for pain Discharge prescriptions per primary service Objective Vital Signs - Last 8 Hours Temp Pulse Resp BP Pulse Ox 02/27/18 04:18 98.2 F 73 14 138/86 98 Intake and Output 02/26/18 02/27/18 02/27/18 23:59 07:59 15:59 Intake Total 1000 / 1000 0 / 0 Output Total 0 / 0 400 / 400 Balance 1000 / 1000 -400 / -400 Intake: Oral 1000 / 1000 0 / 0 Output: Urine 0 / 0 400 / 400 Other: # Voids 1 Weight 70.261 kg Patient Weight 02/27/18 23:59 Weight 70.261 kg - Labs 02/26/18 04:09 02/26/18 13:45 Diabetes panel 02/26/18 Range/Units 13:45 Sodium 139 (136-145) mEq/L Potassium 3.7 (3.5-5.1) mEq/L Chloride 104 (98-107) mEq/L Carbon Dioxide 29 (23-29) mEq/L BUN 7 (6-20) mg/dL Creatinine 0.75 (0.70-1.30) mg/dL Glucose 136 H (70-105) mg/dL Calcium 9.5 (8.6-10.3) mg/dL AST 20 (13-39) Units/L ALT 27 (7-52) Units/L Alkaline Phosphatase 75 (34-104) Units/L Albumin 4.2 (3.5-5.7) g/dL Calcium panel 02/26/18 Range/Units 13:45 Calcium 9.5 (8.6-10.3) mg/dL Albumin 4.2 (3.5-5.7) g/dL Pituitary panel 02/26/18 Range/Units 13:45 Sodium 139 (136-145) mEq/L Potassium 3.7 (3.5-5.1) mEq/L Chloride 104 (98-107) mEq/L Carbon Dioxide 29 (23-29) mEq/L BUN 7 (6-20) mg/dL Creatinine 0.75 (0.70-1.30) mg/dL Glucose 136 H (70-105) mg/dL Calcium 9.5 (8.6-10.3) mg/dL Adrenal panel 02/26/18 Range/Units 13:45 Sodium 139 (136-145) mEq/L Potassium 3.7 (3.5-5.1) mEq/L Chloride 104 (98-107) mEq/L Carbon Dioxide 29 (23-29) mEq/L BUN 7 (6-20) mg/dL Creatinine 0.75 (0.70-1.30) mg/dL Glucose 136 H (70-105) mg/dL Calcium 9.5 (8.6-10.3) mg/dL Total Bilirubin 0.2 L (0.3-1.0) mg/dL AST 20 (13-39) Units/L ALT 27 (7-52) Units/L Alkaline Phosphatase 75 (34-104) Units/L Albumin 4.2 (3.5-5.7) g/dL - VTE Documentation of Mechanical Device: Intermittent pneumatic compression device Consult Discharge Plan - Plan Instructions: Laparoscopic Cholecystectomy (DC) Additional Instructions: Follow-up with Dr. wolf outpatient take pain medication as needed Referrals: Dinesh Wolf MD [Non-Partnered Physician] - 03/04/18 2:50 pm Prescriptions: HYDROcodone/Acet 5/325 mg [[place] 5-325 mg] 1 tab PO Q4H PRN 2 Days #12 tab PRN Reason: Breakthrough Pain
[2018-02-27 12:07] VITALS: BP 134/83
== END 2018-02-27 18:10 | disposition home or self-care (01) ==
LOC: 3ANU → SUATTDRO 03:19
PROVIDERS: ADMIT Internal Medicine; ATTEND Internal Medicine

== ENCOUNTER 2021-03-04 09:35 | Observation (INO) ==
[2021-03-04] MEDS ORDERED: Ondansetron 4 MG/2 ML VIAL IVP ONE (09:57)
[2021-03-04] MEDS ORDERED: 0.9 % Sodium Chloride 1,000 ML IVC ONE (09:57)
[2021-03-04 10:13] LABS: Basophils % 0.4 %; Eosinophils # 0.2 K/mcL (0.0-0.6); Eosinophils % 2.2 %; Hematocrit 44.9 % (37.5-50.1); Immature Granulocytes % 0.3 % (0-4); Lymphocytes # 1.6 K/mcL (0.6-4.6); Lymphocytes % 17.5 %; Mean Corpuscular HGB Conc 33.4 g/dL (31.6-35.5); Mean Corpuscular Hemoglobin 30.6 pg (28.0-33.3); Mean Corpuscular Volume 91.6 fL (83.0-100.0); Monocytes # 0.8 K/mcL (0.0-1.3); Monocytes % 8.6 %; Neutrophils # 6.5 K/mcL (1.6-8.9); Platelet Count 289 K/mcL (140-400); Red Cell Distribution Width 12.4 % (11.5-14.5); White Blood Count 9.2 K/mcL (4.3-11.1)
[2021-03-04 10:29] LABS: Alanine Aminotransferase 63 Units/L (7-52); Albumin 4.9 g/dL (3.5-5.7); Albumin/Globulin Ratio 1.4 (1.1-2.2); Alkaline Phosphatase 131 Units/L (34-104); Amylase 19 Units/L (29-103); Aspartate Amino Transferase 40 Units/L (13-39); BUN/Creatinine Ratio 11 (6-26); Bilirubin,Direct 0.2 mg/dL (0.0-0.2); Bilirubin,Indirect 0.4 mg/dL (0.0-1.0); Bilirubin,Total 0.6 mg/dL (0.3-1.0); Blood Urea Nitrogen 10 mg/dL (6-20); Calcium 9.8 mg/dL (8.6-10.3); Carbon Dioxide 26 mEq/L (23-29); Chloride 102 mEq/L (98-107); Globulin 3.4 g/dL (2.4-3.5); Glucose 107 mg/dL (70-105); Lipase 6 Units/L (11-82); Osmolality,Calculated 284 (280-300); Potassium 3.7 mEq/L (3.5-5.1); Sodium 137 mEq/L (136-145); Total Protein 8.3 g/dL (6.4-8.9); eGFR For African Americans > 60 (> 60); eGFR For Non-African Americans > 60 (> 60)
[2021-03-04 11:46] LABS: Bacteria,Urine Few per hpf (None-Few); Bilirubin,Urine Negative (Negative); Blood,Urine Negative (Negative); Clarity,Urine Clear (Clear); Color,Urine Yellow (Yellow); Glucose,Urine (UA) Normal (Normal); Ketones,Urine Negative (Negative); Leukocyte Esterase,Urine Negative (Negative); Mucus,Urine Moderate per lpf (None-Few); Nitrite,Urine Negative (Negative); Protein,Urine 30 mg/dL (Neg-Trace); RBC,Urine 0-3 per hpf (0-3); Specific Gravity,Urine 1.028 (1.010-1.025); Squamous Epithelial Cell,Urine Few per hpf (None-Few); Urobilinogen,Urine Normal (Normal); WBC,Urine 0-3 per hpf (0-3)
[2021-03-04] MEDS ORDERED: Naloxone 0.4 MG/ML INJ IVP PRN (12:33)
[2021-03-04] MEDS ORDERED: Acetaminophen 325 MG TABLET PO PRN (12:33)
[2021-03-04] MEDS ORDERED: Melatonin 3 MG TABLET PO PRN (12:33)
[2021-03-04] MEDS ORDERED: D5% in Water 1,000 ML IVC PRN (12:41)
[2021-03-04] MEDS ORDERED: *HR* Dextrose 50 % in Water (Vial) 50 ML VIAL IVP PRN (12:41)
[2021-03-04] MEDS ORDERED: Dextrose Gel 15 GM/37.5 ML TUBE PO PRN ×2 (12:41)
[2021-03-04 13:11] LABS: Phosphorous 3.3 mg/dL (2.7-4.5)
[2021-03-04 13:55] LABS: Estimated Average Glucose 100 mg/dl; Hemoglobin A1C 5.1 %
[2021-03-04] MEDS: Pantoprazole 40 MG VIAL IVP SCH (14:33)
[2021-03-04] MEDS: Ringers Solution, Lactated 1,000 ML IVC SCH (14:34)
[2021-03-04] MEDS ORDERED: Chloraseptic Spray 177 ML BOTTLE MM PRN (14:44)
[2021-03-04] MEDS: Ondansetron 4 MG/2 ML VIAL IVP PRN (17:35)
[2021-03-04] MEDS: *HR* Heparin 5,000 UNIT/ML VIAL SQ SCH (17:38)
[2021-03-04] MEDS ORDERED: *HR* Promethazine 25 MG/ML VIAL IM PRN (18:07)
[2021-03-04] MEDS: Acetaminophen IV 1,000 MG/100 ML BAG IVPB PRN (21:36)
[2021-03-04] MEDS ORDERED: Lidocaine Viscous Oral Soln 15 ML SOLUTION MM ONE (22:25)
[2021-03-05] MEDS: Ondansetron 4 MG/2 ML VIAL IVP PRN ×2 (01:35→12:23)
[2021-03-05] MEDS: Ringers Solution, Lactated 1,000 ML IVC SCH (01:35)
[2021-03-05] MEDS: Acetaminophen IV 1,000 MG/100 ML BAG IVPB PRN (05:56)
[2021-03-05] MEDS: *HR* Heparin 5,000 UNIT/ML VIAL SQ SCH ×2 (05:57→16:14)
[2021-03-05 06:03] LABS: Basophils % 0.5 %; Eosinophils # 0.2 K/mcL (0.0-0.6); Eosinophils % 3.7 %; Hematocrit 37.4 % (37.5-50.1); Immature Granulocytes % 0.3 % (0-4); Lymphocytes # 1.6 K/mcL (0.6-4.6); Lymphocytes % 26.4 %; Mean Corpuscular HGB Conc 33.7 g/dL (31.6-35.5); Mean Corpuscular Hemoglobin 31.3 pg (28.0-33.3); Mean Corpuscular Volume 92.8 fL (83.0-100.0); Mean Platelet Volume 10.2 fL (9.4-12.4); Monocytes # 0.6 K/mcL (0.0-1.3); Monocytes % 10.3 %; Neutrophils # 3.7 K/mcL (1.6-8.9); Platelet Count 226 K/mcL (140-400); Red Blood Count 4.03 M/mcL (4.19-5.50); Red Cell Distribution Width 12.5 % (11.5-14.5); Segmented Neutrophils % 58.8 %; White Blood Count 6.2 K/mcL (4.3-11.1)
[2021-03-05 06:04] LABS: Hemoglobin 12.6 g/dL (12.9-16.9)
[2021-03-05 06:24] LABS: BUN/Creatinine Ratio 14 (6-26); Blood Urea Nitrogen 11 mg/dL (6-20); Calcium 8.8 mg/dL (8.6-10.3); Carbon Dioxide 25 mEq/L (23-29); Chloride 106 mEq/L (98-107); Glucose 87 mg/dL (70-105); Magnesium 1.9 mg/dL (1.6-2.6); Osmolality,Calculated 285 (280-300); Phosphorous 3.2 mg/dL (2.7-4.5); Potassium 3.5 mEq/L (3.5-5.1); Sodium 138 mEq/L (136-145); eGFR For African Americans > 60 (> 60); eGFR For Non-African Americans > 60 (> 60)
[2021-03-05] MEDS: Pantoprazole 40 MG VIAL IVP SCH (07:39)
[2021-03-05] MEDS ORDERED: Lidocaine Viscous Oral Soln 15 ML SOLUTION MM ONE (08:03)
[2021-03-06] MEDS: *HR* Heparin 5,000 UNIT/ML VIAL SQ SCH ×2 (05:17→17:55)
[2021-03-06 05:35] LABS: Basophils % 0.5 %; Eosinophils # 0.4 K/mcL (0.0-0.6); Eosinophils % 4.9 %; Hematocrit 40.7 % (37.5-50.1); Hemoglobin 13.4 g/dL (12.9-16.9); Immature Granulocytes % 0.5 % (0-4); Lymphocytes % 25.7 %; Mean Corpuscular HGB Conc 32.9 g/dL (31.6-35.5); Mean Corpuscular Hemoglobin 30.2 pg (28.0-33.3); Mean Corpuscular Volume 91.7 fL (83.0-100.0); Mean Platelet Volume 10.2 fL (9.4-12.4); Monocytes # 0.7 K/mcL (0.0-1.3); Monocytes % 9.6 %; Neutrophils # 4.5 K/mcL (1.6-8.9); Platelet Count 259 K/mcL (140-400); Red Blood Count 4.44 M/mcL (4.19-5.50); Red Cell Distribution Width 12.5 % (11.5-14.5); Segmented Neutrophils % 58.8 %; White Blood Count 7.7 K/mcL (4.3-11.1)
[2021-03-06 05:59] LABS: BUN/Creatinine Ratio 12 (6-26); Blood Urea Nitrogen 9 mg/dL (6-20); Calcium 9.3 mg/dL (8.6-10.3); Carbon Dioxide 25 mEq/L (23-29); Chloride 105 mEq/L (98-107); Glucose 94 mg/dL (70-105); Osmolality,Calculated 284 (280-300); Potassium 3.5 mEq/L (3.5-5.1); Sodium 138 mEq/L (136-145); eGFR For African Americans > 60 (> 60); eGFR For Non-African Americans > 60 (> 60)
[2021-03-06] MEDS: Ondansetron 4 MG/2 ML VIAL IVP PRN (07:47)
[2021-03-06] MEDS: Pantoprazole 40 MG VIAL IVP SCH (07:47)
[2021-03-06 07:49] LABS: Adenovirus Not Detected (Not Detect); Bordetella Pertussis Not Detected (Not Detect); Chlamydophila pneumoniae Not Detected (Not Detect); Coronavirus 229E Not Detected (Not Detect); Coronavirus HKU1 Not Detected (Not Detect); Coronavirus NL63 Not Detected (Not Detect); Coronavirus OC43 Not Detected (Not Detect); Human Metapneumovirus Not Detected (Not Detect); Human Rhinovirus/Enterovirus Not Detected (Not Detect); Influenza A Subtype 2009 H1 Not Detected (Not Detect); Influenza B Not Detected (Not Detect); Mycoplasma pneumoniae Not Detected (Not Detect); Parainfluenza Virus 1 Not Detected (Not Detect); Parainfluenza Virus 2 Not Detected (Not Detect); Parainfluenza Virus 3 Not Detected (Not Detect); Parainfluenza Virus 4 Not Detected (Not Detect); Respiratory Syncytial Virus Not Detected (Not Detect); SARS-CoV-2 Not Detected (Not Detect)
[2021-03-07] MEDS: *HR* Heparin 5,000 UNIT/ML VIAL SQ SCH (04:59)
[2021-03-07 06:50] VITALS: BP 105/62
[2021-03-07] MEDS: Pantoprazole 40 MG VIAL IVP SCH (08:35)
[2021-03-07] MEDS ORDERED: BuPROPion XL (24 HR) 150 MG TABLET PO SCH (09:00)
== END 2021-03-07 09:15 | disposition home or self-care (01) ==
LOC: EMEROOARM 09:35 → 3BNU 09:35 → SUATTDRO 12:19 → 3BNU 12:57
PROVIDERS: ADMIT Internal Medicine; ATTEND Internal Medicine

== ENCOUNTER 2022-06-13 08:31 | Observation (INO) ==
[2022-06-13] MEDS ORDERED: 0.9 % Sodium Chloride 1,000 ML IVC ONE (08:43)
[2022-06-13] MEDS ORDERED: Ketorolac 30 MG/ML VIAL IVP ONE (08:43)
[2022-06-13] MEDS ORDERED: Morphine Sulfate 2 MG/ML SYRINGE IVP ONE (08:43)
[2022-06-13] MEDS ORDERED: Iopamidol - 370 500 ML MLS IVP ONE (08:45)
[2022-06-13] MEDS ORDERED: Ondansetron 4 MG/2 ML VIAL IVP ONE (08:47)
[2022-06-13 09:05] LABS: Basophils % 0.3 %; Eosinophils # 0.2 K/mcL (0.0-0.6); Eosinophils % 2.3 %; Hematocrit 45.6 % (37.5-50.1); Hemoglobin 15.3 g/dL (12.9-16.9); Immature Granulocytes % 0.3 % (0-4); Lymphocytes # 1.5 K/mcL (0.6-4.6); Lymphocytes % 17.5 %; Mean Corpuscular HGB Conc 33.6 g/dL (31.6-35.5); Mean Corpuscular Hemoglobin 31.6 pg (28.0-33.3); Mean Corpuscular Volume 94.2 fL (83.0-100.0); Mean Platelet Volume 9.9 fL (9.4-12.4); Monocytes # 0.8 K/mcL (0.0-1.3); Monocytes % 8.7 %; Neutrophils # 6.2 K/mcL (1.6-8.9); Platelet Count 262 K/mcL (140-400); Red Blood Count 4.84 M/mcL (4.19-5.50); Red Cell Distribution Width 12.8 % (11.5-14.5); Segmented Neutrophils % 70.9 %; White Blood Count 8.7 K/mcL (4.3-11.1)
[2022-06-13 09:21] LABS: Alanine Aminotransferase 40 Units/L (7-52); Albumin 4.9 g/dL (3.5-5.7); Albumin/Globulin Ratio 1.5 (1.1-2.2); Alkaline Phosphatase 108 Units/L (34-104); Aspartate Amino Transferase 25 Units/L (13-39); BUN/Creatinine Ratio 18 (6-26); Bilirubin,Direct 0.2 mg/dL (0.0-0.2); Bilirubin,Indirect 0.5 mg/dL (0.0-1.0); Bilirubin,Total 0.7 mg/dL (0.3-1.0); Blood Urea Nitrogen 15 mg/dL (6-20); Calcium 9.9 mg/dL (8.6-10.3); Carbon Dioxide 26 mEq/L (23-29); Chloride 102 mEq/L (98-107); Globulin 3.3 g/dL (2.4-3.5); Glucose 98 mg/dL (70-105); Lipase 6 Units/L (11-82); Osmolality,Calculated 285 (280-300); Sodium 137 mEq/L (136-145); Total Protein 8.2 g/dL (6.4-8.9)
[2022-06-13] MEDS ORDERED: Naloxone 0.4 MG/ML INJ IVP PRN (09:49)
[2022-06-13] MEDS ORDERED: D5% in Water 1,000 ML IVC PRN ×2 (09:51→23:50)
[2022-06-13] MEDS ORDERED: Dextrose Gel 15 GM/37.5 ML TUBE PO PRN ×4 (09:51→23:50)
[2022-06-13 10:09] LABS: Bilirubin,Urine Negative (Negative); Blood,Urine Negative (Negative); Clarity,Urine Clear (Clear); Color,Urine Yellow (Yellow); Glucose,Urine (UA) Normal (Normal); Ketones,Urine 40 mg/dL (Negative); Leukocyte Esterase,Urine Negative (Negative); Nitrite,Urine Negative (Negative); PH,Urine 6.5 pH Units (5.0-8.0); Protein,Urine Trace mg/dL (Neg-Trace); Specific Gravity,Urine > 1.030 (1.010-1.025)
[2022-06-13] MEDS ORDERED: *HR* LORazepam 2 MG/ML VIAL IVP ONE (11:38)
[2022-06-13] MEDS: Ondansetron 4 MG/2 ML VIAL IVP PRN (11:50)
[2022-06-13] MEDS: Ringers Solution, Lactated 1,000 ML IVC SCH (11:51)
[2022-06-13] MEDS: Insulin LISPRO 300 UNITS/3 ML VIAL SUBQ SCH ×2 (13:37→17:28)
[2022-06-13] MEDS ORDERED: Acetaminophen IV 500 MG/50 ML BAG IVPB ONE (16:10)
[2022-06-13] MEDS ORDERED: Chloraseptic Spray 177 ML BOTTLE MM PRN (19:33)
[2022-06-13] MEDS ORDERED: *HR* Dextrose 50 % in Water (Syg) 50 ML SYRINGE IVP PRN (23:50)
[2022-06-14] MEDS: Insulin LISPRO 300 UNITS/3 ML VIAL SUBQ SCH ×4 (01:03→17:51)
[2022-06-14] MEDS ORDERED: Ketorolac 30 MG/ML VIAL IVP ONE (01:23)
[2022-06-14] MEDS: Ondansetron 4 MG/2 ML VIAL IVP PRN ×3 (01:34→15:32)
[2022-06-14] MEDS: Ringers Solution, Lactated 1,000 ML IVC SCH (01:35)
[2022-06-14 05:56] LABS: INR 1.1; Prothrombin Time 12.7 Seconds (9.4-12.1)
[2022-06-14 05:59] LABS: Activated Partial Thrombo Time 32.4 Seconds (26.0-36.0)
[2022-06-14] MEDS ORDERED: *HR* Promethazine 25 MG/ML VIAL IM ONE (07:41)
[2022-06-14] MEDS: Pantoprazole 40 MG VIAL IVP SCH (08:08)
[2022-06-14 09:26] LABS: BUN/Creatinine Ratio 20 (6-26); Blood Urea Nitrogen 17 mg/dL (6-20); Calcium 8.7 mg/dL (8.6-10.3); Carbon Dioxide 26 mEq/L (23-29); Chloride 104 mEq/L (98-107); Glucose 72 mg/dL (70-105); Magnesium 1.8 mg/dL (1.6-2.6); Osmolality,Calculated 284 (280-300); Phosphorous 3.2 mg/dL (2.7-4.5); Potassium 4.1 mEq/L (3.5-5.1); Sodium 137 mEq/L (136-145)
[2022-06-14] MEDS: Acetaminophen IV 1,000 MG/100 ML BAG IVPB PRN (13:21)
[2022-06-14] MEDS ORDERED: *HR* Promethazine 25 MG/ML VIAL IM PRN (15:22)
[2022-06-14] MEDS: 0.9 % Sodium Chloride 1,000 ML IVC SCH (15:33)
[2022-06-14] MEDS ORDERED: *HR* LORazepam 2 MG/ML VIAL IVP PRN (17:53)
[2022-06-15] MEDS: *HR* Dextrose 50 % in Water (Syg) 50 ML SYRINGE IVP PRN ×2 (00:10→04:24)
[2022-06-15] MEDS: Insulin LISPRO 300 UNITS/3 ML VIAL SUBQ SCH ×3 (00:38→11:44)
[2022-06-15] MEDS: Ondansetron 4 MG/2 ML VIAL IVP PRN (03:02)
[2022-06-15] MEDS: Acetaminophen IV 1,000 MG/100 ML BAG IVPB PRN (03:34)
[2022-06-15] MEDS: 0.9 % Sodium Chloride 1,000 ML IVC SCH (03:45)
[2022-06-15] MEDS: Pantoprazole 40 MG VIAL IVP SCH (08:31)
[2022-06-15 11:49] VITALS: BP 120/70; PULSE 73; TEMP 98.4; O2SAT 95
== END 2022-06-15 13:27 | disposition home or self-care (01) ==
LOC: 3BNU 08:31 → EMEROOARM 08:31 → SUATTDRO 13:52 → 3BNU 14:34
PROVIDERS: ADMIT Internal Medicine; ATTEND Registered Nurse